=== PATIENT | male | born 1945 | race Caucasian/White ===

== ENCOUNTER → 2016-07-25 | Outpatient (CLI) | payer BC, OTHER ==
[2016-07-25 12:25] LABS: Basophils # (auto) 0 uL; Basophils % (auto) 0.4 % (0.0-2.0); Eosinophils # (auto) 0.2 uL; Eosinophils % (auto) 3.7 % (0.0-7.0); Hematocrit 44.8 % (41.0-53.0); Lymphocytes # (auto) 1.6 uL; Mean Corpuscular Hemoglobin 29.5 pg (28.0-32.0); Mean Corpuscular Hgb Conc. 31.3 g/dL (32.0-36.0); Mean Corpuscular Volume 94.3 fL (80.0-100.0); Mean Platelet Volume 8.7 fL (7.4-10.4); Monocytes # (auto) 0.5 uL; Monocytes % (auto) 7.9 % (0.0-12.0); Neutrophils # (auto) 3.4 uL; Platelet Count (auto) 274 10^3/uL (140-450); Red Cell Distribution Width 13.7 % (11.6-16.0); White Blood Cell 5.7 10^3/uL (4.4-10.8)
[2016-07-25 12:31] LABS: Urine Bilirubin Negative (Negative); Urine Blood Negative /uL (Negative); Urine Color Yellow (Yellow); Urine Glucose Normal (Normal); Urine Ketone Negative (Negative); Urine Nitrite Negative (Negative); Urine Urobilinogen Normal (Negative)
[2016-07-25 13:40] LABS: Albumin 3.9 g/dL (3.4-5.0); BUN/Creatinine Ratio 17.8; Bilirubin, Direct 0.1 mg/dL (0-0.2); Bilirubin, Total 0.3 mg/dL (0.2-1.0); Potassium 4.1 mmol/L (3.5-5.1); Total Protein 7.4 g/dL (6.4-8.2)
== END | disposition home or self-care (01) ==
LOC: LAB 08:16
PROVIDERS: ATTEND Internal Medicine Cardiovascular Disease
DX: I10 Essential (primary) hypertension (principal); E78.00 Pure hypercholesterolemia, unspecified; K74.1 Hepatic sclerosis; E11.9 Type 2 diabetes mellitus without complications; E03.9 Hypothyroidism, unspecified; D64.9 Anemia, unspecified; E55.9 Vitamin D deficiency, unspecified; N39.0 Urinary tract infection, site not specified
CPT/HCPCS: 36415; 80048; 80061; 80076; 81003; 82306; 83036; 84443; 85025

== ENCOUNTER → 2017-05-03 | Outpatient (CLI) | payer MEDICARE, OTHER | END | disposition home or self-care (01) | LOC: Rad HDHVI 09:25 | PROVIDERS: ATTEND Internal Medicine Cardiovascular Disease | DX: I05.2 Rheumatic mitral stenosis with insufficiency (principal); I35.0 Nonrheumatic aortic (valve) stenosis; R06.02 Shortness of breath | CPT/HCPCS: 93306 ==

== ENCOUNTER → 2017-05-09 | Outpatient (CLI) | payer MEDICARE, OTHER ==
[~2017-05-09] VITALS: Ht 30.5 cm; Wt 0.5 kg
[~2017-05-09] MED LIST: D5W 5% IV SCH; DIPYRIDAMOLE (5MG/ML) 10 ML VIAL IV ONE; DIPYRIDAMOLE IV SCH
== END | disposition home or self-care (01) ==
LOC: Rad HDHVI 13:30
PROVIDERS: ATTEND Internal Medicine Cardiovascular Disease
DX: I25.10 Atherosclerotic heart disease of native coronary artery without angina pectoris (principal); I25.2 Old myocardial infarction; K21.9 Gastro-esophageal reflux disease without esophagitis; M77.9 Enthesopathy, unspecified; Z95.1 Presence of aortocoronary bypass graft
CPT/HCPCS: 78452; 93005; 96374; 96375; A9500; J1245

== ENCOUNTER → 2018-02-15 | Outpatient (CLI) | payer MEDICARE, BC ==
[2018-02-15 12:16] LABS: Basophils # (auto) 0 uL; Basophils % (auto) 0.8 % (0.0-2.0); Eosinophils # (auto) 0.2 uL; Eosinophils % (auto) 3.6 % (0.0-7.0); Hematocrit 42.9 % (41.0-53.0); Hemoglobin 14.2 g/dL (13.5-17.5); Lymphocytes # (auto) 1.7 uL; Lymphocytes % (auto) 28.7 % (10.0-50.0); Mean Corpuscular Hemoglobin 31.6 pg (28.0-32.0); Mean Corpuscular Hgb Conc. 33.1 g/dL (32.0-36.0); Mean Corpuscular Volume 95.4 fL (80.0-100.0); Monocytes # (auto) 0.7 uL; Monocytes % (auto) 11.8 % (0.0-12.0); Neutrophils # (auto) 3.3 uL; Neutrophils % (auto) 55.1 % (37.0-80.0); Nucleated Red Blood Cells % 0.1 %; Platelet Count (auto) 225 10^3/uL (140-450); Red Cell Distribution Width 13.7 % (11.8-14.3)
[2018-02-15 12:22] LABS: Urine Blood TRACE /uL (Negative); Urine Specific Gravity 1.016 (1.001-1.035)
[2018-02-15 13:33] LABS: Albumin 3.6 g/dL (3.4-5.0); BUN/Creatinine Ratio 23.6; Bilirubin, Total 0.4 mg/dL (0.2-1.0); Calcium 8.6 mg/dL (8.5-10.1); Magnesium 2.3 mg/dL (1.6-2.6); Potassium 4.5 mmol/L (3.5-5.1); Total Protein 7.2 g/dL (6.4-8.2)
[2018-02-15 13:54] LABS: Free T4 (Free Thyroxine) 1.24 ng/dL (0.89-1.76)
[2018-02-15 13:56] LABS: Folate (Folic Acid) 12.47 ng/mL (5.38-24)
== END | disposition home or self-care (01) ==
LOC: LAB 08:17
PROVIDERS: ATTEND Internal Medicine
DX: Z00.01 Encounter for general adult medical examination with abnormal findings (principal); E83.40 Disorders of magnesium metabolism, unspecified; E03.9 Hypothyroidism, unspecified; E11.9 Type 2 diabetes mellitus without complications; D51.9 Vitamin B12 deficiency anemia, unspecified; N39.0 Urinary tract infection, site not specified; R74.8 Abnormal levels of other serum enzymes; K21.9 Gastro-esophageal reflux disease without esophagitis; E55.9 Vitamin D deficiency, unspecified
CPT/HCPCS: 36415; 80053; 80061; 81003; 82306; 82550; 82607; 82746; 83036; 83735; 84439; 84443; 85025

== ENCOUNTER → 2018-03-20 | Outpatient (CLI) | payer MEDICARE, BC | END | disposition home or self-care (01) | LOC: Rad HDHVI 08:04 | PROVIDERS: ATTEND Internal Medicine Cardiovascular Disease | DX: I70.8 Atherosclerosis of other arteries (principal); M54.16 Radiculopathy, lumbar region; I73.9 Peripheral vascular disease, unspecified | CPT/HCPCS: 93926 ==

== ENCOUNTER → 2018-04-24 | Outpatient (CLI) | payer MEDICARE, BC | END | disposition home or self-care (01) | LOC: Rad HDHVI 15:00 | PROVIDERS: ATTEND Internal Medicine Cardiovascular Disease | DX: M47.897 Other spondylosis, lumbosacral region (principal); I71.4 Abdominal aortic aneurysm, without rupture; M85.88 Other specified disorders of bone density and structure, other site; I70.0 Atherosclerosis of aorta; I11.0 Hypertensive heart disease with heart failure; I50.9 Heart failure, unspecified; I21.29 ST elevation (STEMI) myocardial infarction involving other sites | CPT/HCPCS: 72131; 93306 ==

== ENCOUNTER → 2018-06-04 | Outpatient (CLI) | payer MEDICARE, BC ==
[~2018-06-04] VITALS: Ht 154.9 cm; Wt 73.9 kg
[~2018-06-04] MED LIST changes: +ADENOSINE 61 MG in GIVE UN-DILUTED 0 ML IV ONE; +ADENOSINE 90 MG/30 ML INJ IV ONE; -D5W 5% IV SCH; -DIPYRIDAMOLE (5MG/ML) 10 ML VIAL IV ONE; -DIPYRIDAMOLE IV SCH
[2018-06-04 12:13] LABS: Basophils # (auto) 0 uL; Basophils % (auto) 0.8 % (0.0-2.0); Eosinophils # (auto) 0.2 uL; Eosinophils % (auto) 3.7 % (0.0-7.0); Hematocrit 42.4 % (41.0-53.0); Hemoglobin 13.8 g/dL (13.5-17.5); Lymphocytes % (auto) 16.9 % (10.0-50.0); Mean Corpuscular Hemoglobin 30.7 pg (28.0-32.0); Mean Corpuscular Hgb Conc. 32.5 g/dL (32.0-36.0); Mean Corpuscular Volume 94.5 fL (80.0-100.0); Monocytes # (auto) 0.6 uL; Monocytes % (auto) 10.1 % (0.0-12.0); Neutrophils % (auto) 68.5 % (37.0-80.0); Platelet Count (auto) 266 10^3/uL (140-450); Red Blood Cells 4.49 10^6/uL (4.5-5.90); Red Cell Distribution Width 14.7 % (11.8-14.3); White Blood Cell 5.9 10^3/uL (4.4-10.8)
[2018-06-04 12:33] LABS: Albumin 3.5 g/dL (3.4-5.0); BUN/Creatinine Ratio 16.7; Bilirubin, Total 0.3 mg/dL (0.2-1.0); Calcium 8.5 mg/dL (8.5-10.1); Total Protein 6.9 g/dL (6.4-8.2)
== END | disposition home or self-care (01) ==
LOC: Rad HDHVI 09:59 → EDSEX 09:59
PROVIDERS: ATTEND Internal Medicine Cardiovascular Disease
DX: I42.9 Cardiomyopathy, unspecified (principal); I11.0 Hypertensive heart disease with heart failure; I50.23 Acute on chronic systolic (congestive) heart failure; K92.2 Gastrointestinal hemorrhage, unspecified; D64.9 Anemia, unspecified
CPT/HCPCS: 36415; 78452; 80053; 85025; 93005; 96374; 96375; A9500; J0153

== ENCOUNTER → 2018-09-25 | Outpatient (CLI) | payer MEDICARE, BC ==
[~2018-09-25] MED LIST changes: -ADENOSINE 61 MG in GIVE UN-DILUTED 0 ML IV ONE; -ADENOSINE 90 MG/30 ML INJ IV ONE; +IOHEXOL 350 MG/ML 100ML IJ ONE
[2018-09-25 09:40] VITALS: BP 137/66
--- NOTE | 2018-09-25 09:40 | NUR ---
IV insertion IV access obtained, via clean sterile technique by inserting 20 gauge catheter at LFA after 2 attempt(s). IV secured properly. No trauma to site. Patient tolerated procedure well.
[2018-09-25 10:46] LABS: Basophils # (auto) 0 uL; Basophils % (auto) 0.7 % (0.0-2.0); Eosinophils # (auto) 0.2 uL; Eosinophils % (auto) 3.1 % (0.0-7.0); Hematocrit 45.5 % (36.0-46.0); Lymphocytes # (auto) 1.1 uL; Lymphocytes % (auto) 14.6 % (10.0-50.0); Mean Corpuscular Hemoglobin 30.9 pg (28.0-32.0); Mean Corpuscular Volume 93.6 fL (80.0-100.0); Monocytes # (auto) 0.7 uL; Neutrophils # (auto) 5.2 uL; Neutrophils % (auto) 71.6 % (37.0-80.0); Nucleated Red Blood Cells % 0.2 %; Platelet Count (auto) 225 10^3/uL (140-450); Red Blood Cells 4.86 10^6/uL (4.0-5.20); White Blood Cell 7.3 10^3/uL (4.4-10.8)
[2018-09-25 11:03] LABS: BUN/Creatinine Ratio 24.2; Calcium 9.2 mg/dL (8.5-10.1); Potassium 4.2 mmol/L (3.5-5.1)
--- NOTE | 2018-09-25 11:18 | NUR ---
IV removal IV DC'd with sterile technique, catheter fully intact. Pressure dressing applied to site. Patient tolerated procedure well.
[2018-09-25 11:20] VITALS: BP 138/75
--- NOTE | 2018-09-25 11:20 | NUR ---
[facility] Discharge Instructions See e-MAR for any mediations given with this visit. Patient education given on disease process. Patient verbalized understanding. Previous labs reviewed. Patient discharged in stable condition with after care instructions and follow up appointment. NOTE PATIENT EDUCATED TO DRINK PLENTY OF FLUIDS OVER THE NEXT 24 HOURS, PATIENT VERBALIZED UNDERSTANDING.
== END | disposition home or self-care (01) ==
LOC: Rad HDHVI 09:30
PROVIDERS: ATTEND Internal Medicine Cardiovascular Disease
DX: I71.4 Abdominal aortic aneurysm, without rupture (principal); K55.069 Acute infarction of intestine, part and extent unspecified; I70.208 Unspecified atherosclerosis of native arteries of extremities, other extremity; K57.90 Diverticulosis of intestine, part unspecified, without perforation or abscess without bleeding; D64.9 Anemia, unspecified; I10 Essential (primary) hypertension
CPT/HCPCS: 36415; 74175; 80048; 85025; G0463; Q9967

== ENCOUNTER → 2018-10-30 | Outpatient (CLI) | payer MEDICARE, BC ==
[~2018-10-30] MED LIST changes: +ASPI-231 PO; +CLOP75TA28 PO; -IOHEXOL 350 MG/ML 100ML IJ ONE; +METO25TA5 PO; +POM INH; +PRAV20TA3 PO
[2018-10-30 08:27] VITALS: BP 144/65
[2018-10-30 08:53] VITALS: BP 145/68
--- NOTE | 2018-10-30 08:53 | NUR ---
Pre-Op Discharge Summary: See e-MAR for any medications given for this visit. Pre-op orders received and carried out per MD of EKG, LABS and chest xrays. Patient given a copy of EKG with instructions to go to [facility] out patient for further follow up care.
[2018-10-30 11:29] LABS: Basophils # (auto) 0.1 uL; Basophils % (auto) 1.1 % (0.0-2.0); Eosinophils # (auto) 0.2 uL; Eosinophils % (auto) 2.4 % (0.0-7.0); Hematocrit 46.7 % (36.0-46.0); Hemoglobin 15.7 g/dL (12.2-16.2); Lymphocytes # (auto) 1.1 uL; Mean Corpuscular Hemoglobin 31.6 pg (28.0-32.0); Mean Corpuscular Hgb Conc. 33.6 g/dL (32.0-36.0); Mean Corpuscular Volume 93.9 fL (80.0-100.0); Monocytes # (auto) 0.5 uL; Monocytes % (auto) 8.5 % (0.0-12.0); Neutrophils # (auto) 4.6 uL; Nucleated Red Blood Cells % 0.1 %; Platelet Count (auto) 251 10^3/uL (140-450); Red Blood Cells 4.97 10^6/uL (4.0-5.20); Red Cell Distribution Width 13.4 % (11.8-14.3); White Blood Cell 6.4 10^3/uL (4.4-10.8)
[2018-10-30 12:11] LABS: INR 0.9 (0.9-1.15); Partial Thromboplastin Time 25.7 sec (23.78-33.04); Prothrombin Time 9.7 sec (9.27-12.13)
[2018-10-30 12:58] LABS: Albumin 3.9 g/dL (3.4-5.0); Potassium 4.2 mmol/L (3.5-5.1)
[2018-10-30 13:02] LABS: BUN/Creatinine Ratio 20.7; Bilirubin, Total 0.4 mg/dL (0.2-1.0); Total Protein 7.3 g/dL (6.4-8.2)
== END | disposition home or self-care (01) ==
LOC: Rad HDHVI 08:11
PROVIDERS: ATTEND Internal Medicine Cardiovascular Disease
DX: Z01.818 Encounter for other preprocedural examination (principal); I70.0 Atherosclerosis of aorta; I11.9 Hypertensive heart disease without heart failure
CPT/HCPCS: 71046; G0463; 36415; 80053; 85025; 85610; 85730; 86850; 86900; 86901; 86920

== ENCOUNTER 2018-10-31 07:00 | Day surgery (SDC) | payer MEDICARE, BC ==
[~2018-10-31] VITALS: Ht 154.9 cm; Wt 76.2 kg
[2018-10-31] MEDS ORDERED: fentaNYL CITRATE 100 MCG/2 ML VL ONE ×2 (07:56→09:08)
[2018-10-31] MEDS ORDERED: ANGIOMAX 250 MG VIAL IV ONE ×2 (07:56→08:49)
[2018-10-31] MEDS ORDERED: ATROPINE SULFATE 1 MG/1 ML VIAL ONE (07:56)
[2018-10-31] MEDS ORDERED: MIDAZOLAM HCL 1MG/1ML-2 ML VIAL ONE ×2 (07:56→09:08)
[2018-10-31] MEDS ORDERED: IOHEXOL 350 MG/ML 100ML IJ ONE ×2 (07:57→08:07)
[2018-10-31] MEDS ORDERED: DOPamine 1600MCG/ML D5W 0 ML IV ONE (07:57)
[2018-10-31] MEDS ORDERED: LIDOCAINE 2%HCL (LOCAL ANESTH.) INJ 20ML MDV ONE ×2 (07:57→09:14)
[2018-10-31] MEDS ORDERED: PHENYLEPHRINE IV 0 ML IV ONE (07:59)
[2018-10-31] MEDS ORDERED: PHENYLEPHRINE HCL 10 MG/ML VL ONE (07:59)
[2018-10-31] MEDS ORDERED: SODIUM CHL 0.9% 0 ML ONE (08:02)
[2018-10-31] MEDS ORDERED: diphenhdrAMINE HCL 50 MG/1 ML VL ONE ×2 (08:34→09:12)
[2018-10-31] MEDS ORDERED: ONDANSETRON HCL 4 MG/2 ML VIAL IV PRN (11:45)
[2018-10-31] MEDS ORDERED: ACETAMINOPHEN 500 MG TAB PO PRN (11:45)
== END 2018-10-31 16:35 | disposition home or self-care (01) ==
LOC: CATH 07:00
PROVIDERS: ATTEND Internal Medicine Cardiovascular Disease
DX: Q28.8 Other specified congenital malformations of circulatory system (principal); I71.4 Abdominal aortic aneurysm, without rupture; J45.909 Unspecified asthma, uncomplicated; I25.2 Old myocardial infarction; Z79.899 Other long term (current) drug therapy; Z79.82 Long term (current) use of aspirin; Z98.890 Other specified postprocedural states; Z95.1 Presence of aortocoronary bypass graft; Z87.891 Personal history of nicotine dependence
CPT/HCPCS: 34701; 36415; 80053; 85025; 85610; 85730; 86850; 86900; 86901; 86920; C1760; C1769; C1894; J0583; J1200; J1644; J2250; J3010; J7030; Q9967; 99152; J0461

== ENCOUNTER → 2018-11-04 | Outpatient (CLI) | payer MEDICARE, BC ==
[~2018-11-04] MED LIST changes: +IOHEXOL 350 MG/ML 100ML IJ ONE
[2018-11-04 09:25] VITALS: BP 104/52
--- NOTE | 2018-11-04 09:25 | NUR ---
CHF PT ARRIVED TO [facility]F CLINIC IN [address] ABD/PELVIS. V/S OBTAINED IV insertion IV access obtained, via clean sterile technique by inserting 22 gauge catheter at after attempt(s). IV secured properly. No trauma to site. Patient tolerated procedure well.
[2018-11-04 10:33] LABS: BUN/Creatinine Ratio 19.5
--- NOTE | 2018-11-04 11:20 | NUR ---
IV PTS IV GAVE OUT AT THE END OF CT. TEST WAS COMPLETED. SMALL IV INFILTRATION NOTED, APPLIED ICE, SWELLING WENT DOWN A LITTLE AFTER 10 MINUTES, SENT PT HOME WITH ICE PACK AN ADVISED TO PUT ICE ON IT AT HOME. PT VERBALIZED UNDERSTANDING
[2018-11-04 11:36] VITALS: BP 116/53
--- NOTE | 2018-11-04 11:36 | NUR ---
Discharge Instructions See e-MAR for any mediations given with this visit. Patient education given on disease process. Patient verbalized understanding. Previous labs reviewed. Patient discharged in stable condition with after care instructions and follow up appointment. ENCOURAGED PT TO INCREASE FLUID INTAKE TODAY
== END | disposition home or self-care (01) ==
LOC: Rad HDHVI 09:07
PROVIDERS: ATTEND Internal Medicine Cardiovascular Disease
DX: K57.30 Diverticulosis of large intestine without perforation or abscess without bleeding (principal); I71.9 Aortic aneurysm of unspecified site, without rupture; I70.0 Atherosclerosis of aorta; I77.1 Stricture of artery
CPT/HCPCS: 36415; 74175; 80048; G0463; Q9967

== ENCOUNTER → 2019-03-10 | Outpatient (CLI) | payer MEDICARE, BC ==
[~2019-03-10] MED LIST changes: -IOHEXOL 350 MG/ML 100ML IJ ONE
== END | disposition home or self-care (01) ==
LOC: Rad HDHVI 14:02
PROVIDERS: ATTEND Internal Medicine Cardiovascular Disease
DX: I08.8 Other rheumatic multiple valve diseases (principal); I25.10 Atherosclerotic heart disease of native coronary artery without angina pectoris; I63.9 Cerebral infarction, unspecified
CPT/HCPCS: 93306

== ENCOUNTER → 2019-04-29 | Outpatient (CLI) | payer MEDICARE, BC ==
[~2019-04-29] VITALS: Ht 154.9 cm; Wt 73.9 kg
== END | disposition home or self-care (01) ==
LOC: Rad HDHVI 14:03
PROVIDERS: ATTEND Internal Medicine Cardiovascular Disease
DX: I11.0 Hypertensive heart disease with heart failure (principal); I50.23 Acute on chronic systolic (congestive) heart failure; I25.5 Ischemic cardiomyopathy; I25.10 Atherosclerotic heart disease of native coronary artery without angina pectoris; R09.89 Other specified symptoms and signs involving the circulatory and respiratory systems; Z95.1 Presence of aortocoronary bypass graft; Z23 Encounter for immunization; Z87.891 Personal history of nicotine dependence; Z91.09 Other allergy status, other than to drugs and biological substances
CPT/HCPCS: 78472; 96374; 96375; A9505

== ENCOUNTER → 2019-06-23 | Outpatient (CLI) | payer MEDICARE, BC | END | disposition home or self-care (01) | LOC: Rad HDHVI 11:42 | PROVIDERS: ATTEND Internal Medicine | DX: I70.0 Atherosclerosis of aorta (principal); R06.03 Acute respiratory distress | CPT/HCPCS: 71046 ==

== ENCOUNTER → 2020-02-06 | Outpatient (CLI) | payer MEDICARE, BC | END | disposition home or self-care (01) | LOC: Rad HDHVI 09:05 | PROVIDERS: ATTEND Internal Medicine Cardiovascular Disease | DX: I25.10 Atherosclerotic heart disease of native coronary artery without angina pectoris (principal); R06.02 Shortness of breath; R07.89 Other chest pain | CPT/HCPCS: 93306 ==

== ENCOUNTER → 2020-02-24 | Outpatient (CLI) | payer MEDICARE, BC ==
[~2020-02-24] VITALS: Ht 154.9 cm; Wt 76.2 kg
[~2020-02-24] MED LIST changes: +ADENOSINE 64 MG in GIVE UN-DILUTED 0 ML IV ONE; +ADENOSINE 90 MG/30 ML INJ IV ONE
== END | disposition home or self-care (01) ==
LOC: Rad HDHVI 09:43
PROVIDERS: ATTEND Internal Medicine Cardiovascular Disease
DX: I25.10 Atherosclerotic heart disease of native coronary artery without angina pectoris (principal); I10 Essential (primary) hypertension; I25.2 Old myocardial infarction; I50.43 Acute on chronic combined systolic (congestive) and diastolic (congestive) heart failure; R07.9 Chest pain, unspecified; E78.00 Pure hypercholesterolemia, unspecified; Z82.49 Family history of ischemic heart disease and other diseases of the circulatory system; Z95.1 Presence of aortocoronary bypass graft
CPT/HCPCS: 78452; 93005; 96374; 96375; A9500; J0153

== ENCOUNTER → 2020-03-26 | Outpatient (CLI) | payer MEDICARE, BC ==
[~2020-03-26] MED LIST changes: -ADENOSINE 64 MG in GIVE UN-DILUTED 0 ML IV ONE; -ADENOSINE 90 MG/30 ML INJ IV ONE; +ALBUAER3 IN; +ASCO500C49 PO; +BUDE1AER4 IN; +CARB45TA PO; +MONT10TA23 PO; +NITR0.4S29 SL; +SPIR25TA88 PO
[2020-03-26 08:30] VITALS: BP 131/55
[2020-03-26 08:55] VITALS: BP 135/57
[2020-03-26 12:31] LABS: INR 0.96 (0.9-1.15); Partial Thromboplastin Time 27.2 sec (23.0-31.2)
[2020-03-26 12:38] LABS: Potassium 4.3 mmol/L (3.5-5.1)
[2020-03-26 12:39] LABS: Basophils # (auto) 0.1 10 ^3/uL (0-0.2); Basophils % (auto) 0.9 % (0.0-2.0); Eosinophils # (auto) 0.2 10 ^3/uL (0-0.8); Eosinophils % (auto) 2.8 % (0.0-7.0); Hematocrit 45.5 % (36.0-46.0); Hemoglobin 15.4 g/dL (12.2-16.2); Lymphocytes # (auto) 1.6 10 ^3/uL (0.4-5.4); Lymphocytes % (auto) 21.1 % (10.0-50.0); Mean Corpuscular Hemoglobin 32.3 pg (28.0-32.0); Mean Corpuscular Hgb Conc. 33.9 g/dL (32.0-36.0); Mean Corpuscular Volume 95.5 fL (80.0-100.0); Monocytes # (auto) 0.9 10 ^3/uL (0-1.3); Monocytes % (auto) 12.4 % (0.0-12.0); Neutrophils # (auto) 4.7 10 ^3/uL (1.6-8.6); Neutrophils % (auto) 62.8 % (37.0-80.0); Nucleated Red Blood Cells % 0.1 %; Platelet Count (auto) 249 10^3/uL (140-450); Red Blood Cells 4.76 10^6/uL (4.0-5.20); Red Cell Distribution Width 13.1 % (11.8-14.3); White Blood Cell 7.6 10^3/uL (4.4-10.8)
[2020-03-26 12:42] LABS: BUN/Creatinine Ratio 17.4; Calcium 8.9 mg/dL (8.5-10.1)
== END | disposition home or self-care (01) ==
LOC: Rad HDHVI 08:15
PROVIDERS: ATTEND Internal Medicine Cardiovascular Disease
DX: Z01.812 Encounter for preprocedural laboratory examination (principal); I42.9 Cardiomyopathy, unspecified; I50.9 Heart failure, unspecified; I51.7 Cardiomegaly; I70.0 Atherosclerosis of aorta; M47.814 Spondylosis without myelopathy or radiculopathy, thoracic region; M25.78 Osteophyte, vertebrae
CPT/HCPCS: 36415; 71046; 80048; 85025; 85610; 85730; 93005; G0463

== ENCOUNTER 2020-04-01 07:01 | Inpatient (IN) | payer MEDICARE, OTHER ==
[~2020-04-01] VITALS: Ht 154.9 cm; Wt 86.3 kg
[~2020-04-01 07:01] MED LIST changes: -POM INH
[2020-04-01] MEDS ORDERED: IOHEXOL 350 MG/ML 100ML IJ ONE (07:53)
[2020-04-01] MEDS ORDERED: LIDOCAINE 2%HCL (LOCAL ANESTH.) INJ 20ML MDV ONE ×3 (07:53→09:22)
[2020-04-01] MEDS ORDERED: MIDAZOLAM HCL 1MG/1ML-2 ML VIAL ONE ×2 (09:00→09:48)
[2020-04-01] MEDS ORDERED: fentaNYL CITRATE 100 MCG/2 ML VL ONE ×2 (09:04→09:47)
[2020-04-01] MEDS ORDERED: SODIUM CHL 0.9% 50 ML ONE (09:05)
[2020-04-01] MEDS ORDERED: ANGIOMAX 250 MG VIAL IV ONE (09:05)
[2020-04-01] MEDS ORDERED: HYDROmorphone HCL 2 MG/ML VL ONE (10:29)
[2020-04-01] MEDS: RIVAROXABAN 10 MG TAB PO SCH (10:58)
--- NOTE | 2020-04-01 10:58 | NUR ---
MED HELD- PER MD HOLD BLOOD THINNERS TILL NEW ORDERS GIVEN
[2020-04-01] MEDS ORDERED: SODIUM CHLORIDE 0.9% 1,000 ML IV ONE (11:00)
[2020-04-01] MEDS ORDERED: ONDANSETRON HCL 4 MG/2 ML VIAL IV PRN (11:15)
[2020-04-01] MEDS ORDERED: MORPHINE SULF INJ 2 MG/ML SYRINGE 1ML IV PRN (11:15)
[2020-04-01] MEDS ORDERED: ACETAMINOPHEN 500 MG TAB PO PRN (11:15)
[2020-04-01] MEDS ORDERED: NITROGLYCERIN 0.4 MG SL TAB SL PRN ×2 (11:15)
[2020-04-01 11:31] LABS: Basophils # (auto) 0.1 10 ^3/uL (0-0.2); Basophils % (auto) 0.5 % (0.0-2.0); Eosinophils # (auto) 0.2 10 ^3/uL (0-0.8); Eosinophils % (auto) 1.8 % (0.0-7.0); Hematocrit 39.8 % (36.0-46.0); Lymphocytes # (auto) 1.5 10 ^3/uL (0.4-5.4); Lymphocytes % (auto) 14.6 % (10.0-50.0); Mean Corpuscular Hemoglobin 31.5 pg (28.0-32.0); Mean Corpuscular Hgb Conc. 32.5 g/dL (32.0-36.0); Mean Corpuscular Volume 96.9 fL (80.0-100.0); Monocytes # (auto) 0.8 10 ^3/uL (0-1.3); Monocytes % (auto) 7.9 % (0.0-12.0); Neutrophils # (auto) 7.8 10 ^3/uL (1.6-8.6); Neutrophils % (auto) 75.2 % (37.0-80.0); Platelet Count (auto) 269 10^3/uL (140-450); Red Blood Cells 4.11 10^6/uL (4.0-5.20); Red Cell Distribution Width 13.1 % (11.8-14.3); White Blood Cell 10.3 10^3/uL (4.4-10.8)
[2020-04-01] MEDS ORDERED: SODIUM CHLORIDE 0.9% 1,000 ML IV SCH (11:45)
[2020-04-01] MEDS ORDERED: ALBUTEROL SULF HFA 90MCG INH 200DOSE IN PRN (12:00)
[2020-04-01 12:37] VITALS: BP 112/75
[2020-04-01 13:06] VITALS: BP 131/63
[2020-04-01] MEDS ORDERED: FUROSEMIDE 20 MG/2 ML VIAL IV ONE ×2 (13:10→13:15)
[2020-04-01] MEDS ORDERED: FUROSEMIDE 20 MG/2 ML VIAL ONE (13:13)
[2020-04-01 13:21] VITALS: BP 128/75
[2020-04-01 13:50] VITALS: BP 130/77
[2020-04-01] MEDS: MONTELUKAST SODIUM 10 MG TAB PO SCH (18:37)
[2020-04-01] MEDS: PRAVASTATIN SODIUM 20 MG TAB PO SCH (18:37)
[2020-04-01] MEDS: HYDROcodone-ACET 5/325MG TAB PO PRN (18:38)
[2020-04-01] MEDS: BUDESONIDE (INHALATION) 0.5 MG/2 ML NEB NEB SCH (18:57)
[2020-04-01] MEDS: ALBUTEROL SULF 2.5 MG/0.5ML(0.5%) NEB SOLN NEB SCH (18:57)
[2020-04-01 19:47] LABS: Basophils # (auto) 0.1 10 ^3/uL (0-0.2); Basophils % (auto) 0.5 % (0.0-2.0); Eosinophils # (auto) 0 10 ^3/uL (0-0.8); Hematocrit 40.2 % (36.0-46.0); Hemoglobin 12.9 g/dL (12.2-16.2); Lymphocytes # (auto) 0.6 10 ^3/uL (0.4-5.4); Lymphocytes % (auto) 3.1 % (10.0-50.0); Mean Corpuscular Hemoglobin 31.5 pg (28.0-32.0); Mean Corpuscular Hgb Conc. 32.2 g/dL (32.0-36.0); Mean Corpuscular Volume 97.9 fL (80.0-100.0); Monocytes # (auto) 1.4 10 ^3/uL (0-1.3); Monocytes % (auto) 7.5 % (0.0-12.0); Neutrophils # (auto) 16.2 10 ^3/uL (1.6-8.6); Neutrophils % (auto) 88.9 % (37.0-80.0); Nucleated Red Blood Cells % 0.1 %; Platelet Count (auto) 233 10^3/uL (140-450); Red Cell Distribution Width 13.4 % (11.8-14.3); White Blood Cell 18.3 10^3/uL (4.4-10.8)
--- NOTE | 2020-04-01 20:00 | NUR ---
No bleeding noted in both groin.
--- NOTE | 2020-04-01 20:00 | NUR ---
Opening Shift Note Assumed care of patient, awake and alert. No S/S of distress/SOB or pain. Instructed on POC and to call for assist PRN, will continue to monitor for changes Q1hr and PRN.Advised not to get out of bed till trevor. 1 p.m.
[2020-04-01] MEDS: METOPROLOL TARTRATE 25 MG TAB PO SCH (21:53)
[2020-04-01] MEDS: ASCORBIC ACID 500 MG TAB PO SCH (21:54)
[2020-04-01 22:26] VITALS: BP 118/65
[2020-04-02] MEDS: HYDROcodone-ACET 5/325MG TAB PO PRN ×4 (00:19→19:31)
[2020-04-02] MEDS: ALBUTEROL SULF 2.5 MG/0.5ML(0.5%) NEB SOLN NEB SCH ×4 (00:21→19:20)
[2020-04-02 01:28] VITALS: BP 118/65
[2020-04-02 05:16] VITALS: BP 128/56
[2020-04-02] MEDS: SPIRONOLACTONE 25 MG TAB PO SCH (05:49)
[2020-04-02] MEDS: FERROUS SULFATE 325 MG TAB PO SCH (05:50)
[2020-04-02] MEDS: BUDESONIDE (INHALATION) 0.5 MG/2 ML NEB NEB SCH ×2 (06:23→19:20)
--- NOTE | 2020-04-02 07:00 | NUR ---
OPENING SHIFT NOTE RECEIVED REPORT ON THE PATIENT. AWAKE LYING IN BED HAVING BREAKFAST. PATIENT SHOWS NO SIGNS OF DISTRESS AT THIS TIME. DISCUSSED THE PLAN OF CARE WITH THE PATIENT. BED IN LOWEST POSITION, SIDE RAILS UP X2, AND THE CALL LIGHT IS WITHIN REACH.
--- NOTE | 2020-04-02 07:24 | NUR ---
Care report given to Nestor Victoria, patient is resting no distress.
[2020-04-02 08:55] VITALS: BP 130/63
[2020-04-02] MEDS: ASCORBIC ACID 500 MG TAB PO SCH ×2 (10:04→21:56)
[2020-04-02] MEDS: ASPirin-EC 81 mg tab PO SCH (10:05)
[2020-04-02] MEDS: METOPROLOL TARTRATE 25 MG TAB PO SCH ×2 (10:05→21:56)
[2020-04-02] MEDS: CLOPIDOGREL BISULFATE 75 MG TAB PO SCH (10:06)
[2020-04-02 13:00] VITALS: BP 118/51
[2020-04-02] MEDS ORDERED: FUROSEMIDE 40 MG/4 ML VIAL IV ONE (15:00)
[2020-04-02 17:00] VITALS: BP 109/46
[2020-04-02] MEDS: PRAVASTATIN SODIUM 20 MG TAB PO SCH (18:33)
[2020-04-02] MEDS: MONTELUKAST SODIUM 10 MG TAB PO SCH (18:33)
--- NOTE | 2020-04-02 19:31 | NUR ---
Opening Shift Note Assumed care of patient, awake and alert. No S/S of distress/SOB, c/o body ache pain 10/02. Instructed on POC and to call for assist PRN, will continue to monitor for changes Q1hr and PRN.Medicated with one tab. Valders 5/325mg. p.o. as needed.
[2020-04-02 22:10] VITALS: BP 102/50
[2020-04-03] MEDS: ALBUTEROL SULF 2.5 MG/0.5ML(0.5%) NEB SOLN NEB SCH ×4 (00:20→18:50)
[2020-04-03 05:41] VITALS: BP 109/54
[2020-04-03] MEDS: SPIRONOLACTONE 25 MG TAB PO SCH (06:15)
[2020-04-03] MEDS: FERROUS SULFATE 325 MG TAB PO SCH (06:15)
[2020-04-03] MEDS: BUDESONIDE (INHALATION) 0.5 MG/2 ML NEB NEB SCH ×2 (06:35→18:50)
--- NOTE | 2020-04-03 07:21 | NUR ---
Report given to Nestor Jay, patient is resting ,no distress.
--- NOTE | 2020-04-03 07:30 | NUR ---
Opening Note Assumed care of patient, she is A & O x4, no s/s of distress at this time. Patient is comfortable, with soreness in bilateral groin. Will continue to monitor Q1h and PRN.
--- NOTE | 2020-04-03 07:30 | NUR ---
Opening note, Report
[2020-04-03 08:40] VITALS: BP 117/50
--- NOTE | 2020-04-03 10:00 | NUR ---
PT REPORTS THAT SHE JUST WALKED TO RESTROOM WITH NURSING. ATTEMPT P.T. LATER
[2020-04-03] MEDS: ASPirin-EC 81 mg tab PO SCH (10:07)
[2020-04-03] MEDS: ASCORBIC ACID 500 MG TAB PO SCH ×2 (10:07→21:45)
[2020-04-03] MEDS: CLOPIDOGREL BISULFATE 75 MG TAB PO SCH (10:07)
[2020-04-03] MEDS: METOPROLOL TARTRATE 25 MG TAB PO SCH ×2 (10:08→21:45)
--- NOTE | 2020-04-03 10:30 | NUR ---
Contacted Dr. Cloud, Orders received, read back, and verified to continue xarelto. Will medicate per orders.
[2020-04-03] MEDS: RIVAROXABAN 10 MG TAB PO SCH (12:00)
[2020-04-03 12:33] VITALS: BP 112/63
--- NOTE | 2020-04-03 14:00 | NUR ---
Paged PT to walk with patient. Patient request. She would like to walk with a walker.
[2020-04-03 16:33] VITALS: BP 119/51
[2020-04-03] MEDS: PRAVASTATIN SODIUM 20 MG TAB PO SCH (18:25)
[2020-04-03] MEDS: MONTELUKAST SODIUM 10 MG TAB PO SCH (18:26)
--- NOTE | 2020-04-03 18:30 | NUR ---
Removed IV in the left hand. Using clean technique, removed IV, it was causing patient pain, held pressure, no bleeding following procedure. Patient still has one iv in the left wrist.
[2020-04-03] MEDS: HYDROcodone-ACET 5/325MG TAB PO PRN (18:34)
[2020-04-03 23:10] VITALS: BP 109/54
[2020-04-04] MEDS: ALBUTEROL SULF 2.5 MG/0.5ML(0.5%) NEB SOLN NEB SCH ×3 (00:10→11:42)
[2020-04-04 05:15] VITALS: BP 115/60
[2020-04-04] MEDS: FERROUS SULFATE 325 MG TAB PO SCH (06:43)
[2020-04-04] MEDS: SPIRONOLACTONE 25 MG TAB PO SCH (06:43)
--- NOTE | 2020-04-04 07:59 | NUR ---
Report given to Nestor Gamez, patient is resting no distress.
[2020-04-04 08:26] VITALS: BP 113/67
--- NOTE | 2020-04-04 09:30 | NUR ---
Calderon catheter removed upon patient request. Patient will be walking with PT, she wants catheter removed. Removed catheter using clean technique, tip intact, no signs of distress. Will monitor patients next void.
[2020-04-04] MEDS: ASCORBIC ACID 500 MG TAB PO SCH (09:31)
[2020-04-04] MEDS: HYDROcodone-ACET 5/325MG TAB PO PRN (09:31)
[2020-04-04] MEDS: RIVAROXABAN 10 MG TAB PO SCH (09:31)
[2020-04-04] MEDS: METOPROLOL TARTRATE 25 MG TAB PO SCH (09:32)
[2020-04-04] MEDS: CLOPIDOGREL BISULFATE 75 MG TAB PO SCH (09:32)
[2020-04-04] MEDS: ASPirin-EC 81 mg tab PO SCH (09:32)
[2020-04-04] MEDS: BUDESONIDE (INHALATION) 0.5 MG/2 ML NEB NEB SCH (11:42)
[2020-04-04 12:58] VITALS: BP 109/56
--- NOTE | 2020-04-04 14:30 | NUR ---
Discharge Order received by telephone from Dr. Cloud. Order received, read back and verified. Tramadol prescription called to patient pharmacy. Will discharge as ordered.
[2020-04-04 16:25] VITALS: BP 113/67
[2020-04-04 16:57] VITALS: BP 109/66
--- NOTE | 2020-04-04 17:29 | NUR ---
Discharge instructions given as ordered. Encourage to follow up with PMD as instructed. All questions and concerns addressed. Patient verbalized understanding. Medication reconciliation form completed and copy given to patient. IV removed with catheter intact, pressure dressing applied, galeano catheter removed. Telemetry unit returned to ICU. Patient taken to vehicle via wheelchair with all personal belongings, accompanied by staff and family member. No distress noted at time of departure.
== END 2020-04-04 17:29 | disposition home or self-care (01) | DRG 252 ==
LOC: CATH 07:01 → TELE-WESTW 14:48
PROVIDERS: ADMIT Internal Medicine Cardiovascular Disease; ATTEND Internal Medicine Cardiovascular Disease
PROC: 4A023N7 Measurement of Cardiac Sampling and Pressure, Left Heart, Percutaneous Approach (ICD-10-PCS; principal; 2020-04-01)
PROC: 047D3DZ Dilation of Left Common Iliac Artery with Intraluminal Device, Percutaneous Approach (ICD-10-PCS; 2020-04-01)
PROC: 047C3DZ Dilation of Right Common Iliac Artery with Intraluminal Device, Percutaneous Approach (ICD-10-PCS; 2020-04-01)
PROC: B211YZZ Fluoroscopy of Multiple Coronary Arteries using Other Contrast (ICD-10-PCS; 2020-04-01)
PROC: B213YZZ Fluoroscopy of Multiple Coronary Artery Bypass Grafts using Other Contrast (ICD-10-PCS; 2020-04-01)
PROC: B218YZZ Fluoroscopy of Left Internal Mammary Bypass Graft using Other Contrast (ICD-10-PCS; 2020-04-01)
PROC: B215YZZ Fluoroscopy of Left Heart using Other Contrast (ICD-10-PCS; 2020-04-01)
PROC: B410YZZ Fluoroscopy of Abdominal Aorta using Other Contrast (ICD-10-PCS; 2020-04-01)
PROC: B312YZZ Fluoroscopy of Left Subclavian Artery using Other Contrast (ICD-10-PCS; 2020-04-01)
PROC: B41CYZZ Fluoroscopy of Pelvic Arteries using Other Contrast (ICD-10-PCS; 2020-04-01)
PROC: B41GYZZ Fluoroscopy of Left Lower Extremity Arteries using Other Contrast (ICD-10-PCS; 2020-04-01)
PROC: B41FYZZ Fluoroscopy of Right Lower Extremity Arteries using Other Contrast (ICD-10-PCS; 2020-04-01)
DX: I73.9 Peripheral vascular disease, unspecified (principal); I50.21 Acute systolic (congestive) heart failure; I25.5 Ischemic cardiomyopathy; I11.0 Hypertensive heart disease with heart failure; Z20.828 Contact with and (suspected) exposure to other viral communicable diseases; E78.5 Hyperlipidemia, unspecified; J44.9 Chronic obstructive pulmonary disease, unspecified; E66.9 Obesity, unspecified; D72.829 Elevated white blood cell count, unspecified; I25.10 Atherosclerotic heart disease of native coronary artery without angina pectoris; X58.XXXA Exposure to other specified factors, initial encounter; S30.1XXA Contusion of abdominal wall, initial encounter; Z82.49 Family history of ischemic heart disease and other diseases of the circulatory system; Z68.35 Body mass index [BMI] 35.0-35.9, adult; Z95.1 Presence of aortocoronary bypass graft; Z95.5 Presence of coronary angioplasty implant and graft; Y93.89 Activity, other specified; Y92.89 Other specified places as the place of occurrence of the external cause; Y99.8 Other external cause status; Z88.8 Allergy status to other drugs, medicaments and biological substances
CPT/HCPCS: 36225; 36415; 37221; 37222; 75625; 75716; 75736; 76700; 85025; 86850; 86900; 86901; 86920; 93459; 94640; 99152; 99153; G0378; J2250; J2405

== ENCOUNTER → 2020-05-07 | Outpatient (CLI) | payer MEDICARE, BC ==
[~2020-05-07] MED LIST changes: +CHOL20007 PO
[2020-05-07 13:24] VITALS: BP 131/56
--- NOTE | 2020-05-07 13:24 | NUR ---
Patient into clinic for scheduled preop appt, AAOx4, ambulatory, breathing even and unlabored. Patient went to hospital for pre registration prior to coming to preop appt.
[2020-05-07 13:50] VITALS: BP 121/64
--- NOTE | 2020-05-07 13:50 | NUR ---
Pre-Op Discharge Summary: See e-MAR for any medications given for this visit. Pre-op orders received and carried out per MD of EKG, LABS and chest xrays. Patient given a copy of EKG with instructions to go to [facility] out patient for further follow up care.
[2020-05-07 16:09] LABS: BUN/Creatinine Ratio 21.3; Calcium 9.6 mg/dL (8.5-10.1)
[2020-05-07 16:27] LABS: Basophils # (auto) 0.1 10 ^3/uL (0-0.2); Basophils % (auto) 0.9 % (0.0-2.0); Eosinophils # (auto) 0.2 10 ^3/uL (0-0.8); Eosinophils % (auto) 2.8 % (0.0-7.0); Hematocrit 44.5 % (36.0-46.0); Hemoglobin 14.6 g/dL (12.2-16.2); Lymphocytes # (auto) 1.5 10 ^3/uL (0.4-5.4); Lymphocytes % (auto) 17.7 % (10.0-50.0); Mean Corpuscular Hemoglobin 31.8 pg (28.0-32.0); Mean Corpuscular Hgb Conc. 32.8 g/dL (32.0-36.0); Mean Corpuscular Volume 96.9 fL (80.0-100.0); Monocytes # (auto) 0.9 10 ^3/uL (0-1.3); Monocytes % (auto) 10.7 % (0.0-12.0); Neutrophils # (auto) 5.7 10 ^3/uL (1.6-8.6); Neutrophils % (auto) 67.9 % (37.0-80.0); Nucleated Red Blood Cells % 0.1 %; Platelet Count (auto) 263 10^3/uL (140-450); Red Blood Cells 4.59 10^6/uL (4.0-5.20); Red Cell Distribution Width 14.6 % (11.8-14.3); White Blood Cell 8.4 10^3/uL (4.4-10.8)
[2020-05-07 16:43] LABS: Potassium 4.6 mmol/L (3.5-5.1)
[2020-05-07 16:46] LABS: INR 0.97 (0.9-1.15); Partial Thromboplastin Time 25.7 sec (23.0-31.2)
== END | disposition home or self-care (01) ==
LOC: Rad HDHVI 13:11
PROVIDERS: ATTEND Internal Medicine Cardiovascular Disease
DX: Z01.812 Encounter for preprocedural laboratory examination (principal); I70.0 Atherosclerosis of aorta; I11.0 Hypertensive heart disease with heart failure; I50.43 Acute on chronic combined systolic (congestive) and diastolic (congestive) heart failure
CPT/HCPCS: 36415; 71046; 80048; 85025; 85610; 85730; 93005; G0463

== ENCOUNTER 2020-05-13 07:08 | Inpatient (IN) | payer MEDICARE, OTHER ==
[~2020-05-13] VITALS: Ht 154.9 cm; Wt 78.0 kg
[2020-05-13] MEDS ORDERED: IOHEXOL 350 MG/ML 100ML IJ ONE (07:37)
[2020-05-13] MEDS ORDERED: LIDOCAINE 2%HCL (LOCAL ANESTH.) INJ 20ML MDV ONE ×2 (07:37→08:58)
[2020-05-13] MEDS ORDERED: fentaNYL CITRATE 100 MCG/2 ML VL ONE (07:38)
[2020-05-13] MEDS ORDERED: VANCOMYCIN HCL 1000 MG VL ONE (07:38)
[2020-05-13] MEDS ORDERED: MIDAZOLAM HCL 1MG/1ML-2 ML VIAL ONE (07:39)
[2020-05-13] MEDS ORDERED: VANCOMYCIN 1GM/250ML 250 ML IV ONE (07:39)
[2020-05-13] MEDS ORDERED: HYDROmorphone HCL 2 MG/ML VL ONE (08:56)
[2020-05-13] MEDS ORDERED: FUROSEMIDE 20 MG/2 ML VIAL ONE (09:34)
--- NOTE | 2020-05-13 10:02 | NUR ---
Patient brought to recovery via blnaca, report received from ANIRUDH Shelby. Patient is AO x 4, denies pain at this time. NAD noted. Left upper chest site is benign, dressing in place CDI. Ice pack applied to site. Arm immobilizer in place to left arm. Patient educated on post-procedure care instructions, verbalized understanding.
[2020-05-13] MEDS ORDERED: ACETAMINOPHEN 325 MG TAB PO PRN (10:15)
[2020-05-13] MEDS ORDERED: MORPHINE SULF INJ 2 MG/ML SYRINGE 1ML IV PRN (10:15)
[2020-05-13] MEDS ORDERED: NITROGLYCERIN 0.4 MG SL TAB SL PRN (10:15)
--- NOTE | 2020-05-13 10:17 | NUR ---
EKG obtained and placed in patient's chart. MD Cloud reviewed and signed.
--- NOTE | 2020-05-13 10:20 | NUR ---
transport technician at bedside for CXR.
--- NOTE | 2020-05-13 10:40 | NUR ---
Patient is awake in bed. NAD noted. Denies pain at this time. Left upper chest site remains unchanged.
[2020-05-13] MEDS ORDERED: ONDANSETRON HCL 4 MG/2 ML VIAL IV PRN (11:15)
[2020-05-13] MEDS: ceFAZolin 1GM/50ML 50 ML IV SCH ×2 (11:29→18:10)
--- NOTE | 2020-05-13 11:35 | NUR ---
Patient's daughter updated on patient status via telephone. All questions answered at this time.
--- NOTE | 2020-05-13 11:50 | NUR ---
Report given to ANIRUDH Grimm.
--- NOTE | 2020-05-13 12:40 | NUR ---
Patient resting in bed with eyes closed. Breaths even and unlabored. NAD noted. Left upper chest site remains benign. Dressing is CDI.
--- NOTE | 2020-05-13 13:20 | NUR ---
Patient ambulated to bathroom with steady even gait. No s/s of distress/SOB.
--- NOTE | 2020-05-13 14:20 | NUR ---
Patient awake in bed, resting comfortably. Denies pain at this time. Left upper chest site is unchanged.
--- NOTE | 2020-05-13 15:14 | NUR ---
Patient ambulated to bathroom. No s/s of distress noted. Gait is steady and even.
--- NOTE | 2020-05-13 16:10 | NUR ---
Patient taken to telemetry unit via gurney by this RN and ANIRUDH Stringer. security monitor in place and NAD noted upon departure. Primary RNVannessa present at bedside to receive patient and witness left upper chest site benign, dressing CDI. Bed set in lowest locked position with side rails up x 2, call light is within reach and bed alarm set on for safety. Care endorsed to ANIRUDH Hurd.
--- NOTE | 2020-05-13 16:20 | NUR ---
Telemetry admit from [employer] [facility] admitted to Telemetry unit after SBAR received. Patient oriented to Vannessa Boone, RN primary RN, unit, room, bed, and unit policies regarding patient care and visiting hours. Patient now on continuous telemetry monitoring, tele box #[id number] and telemetry reading on arrival to unit is SR 80. Patient placed on bedside oxygen at 1L NC, weighed by bedscale and encouraged to call if they need something. All questions and concerns addressed, patient verbalized understanding. Patient is aware of restrictions to left arm. S/p BIV AICD placement with Dr. Cloud. Left arm is immobilized with sling, ice pack to left upper chest. Bed is low, locked with 2x side rails up. Call light is within reach. This nurse to round Q1hr and PRN.
--- NOTE | 2020-05-13 16:34 | NUR ---
Spoke to patient's , Jorge, via telephone. Phone number . Updated Jorge on patient status. All questions answered at this time
[2020-05-13 16:49] VITALS: BP 123/91
[2020-05-13] MEDS ORDERED: MONTELUKAST SODIUM 10 MG TAB PO SCH (18:00)
[2020-05-13] MEDS ORDERED: PRAVASTATIN SODIUM 20 MG TAB PO SCH (18:00)
--- NOTE | 2020-05-13 19:00 | NUR ---
Opening Shift Note Assumed care of patient from day shift RN, patient awake, alert and oriented x4. No S/S of distress/SOB or pain. Instructed on POC and to call for assist PRN, safety measures in place call light in reach, bed in lowest position, side rails up x2. will continue to monitor for changes Q1hr and PRN.
[2020-05-13] MEDS: HYDROcodone-ACET 5/325MG TAB PO PRN (19:59)
[2020-05-13 20:00] VITALS: BP 123/54
[2020-05-13] MEDS: METOPROLOL TARTRATE 25 MG TAB PO SCH (21:41)
[2020-05-13] MEDS: ASCORBIC ACID 500 MG TAB PO SCH (21:42)
[2020-05-13 22:00] VITALS: BP 123/54
--- NOTE | 2020-05-13 23:50 | NUR ---
Spoke with Dr. Cloud new orders for albuterol and pulmicort read back reviewed and verified orders.
[2020-05-14] MEDS ORDERED: ALBUTEROL SULF 2.5 MG/0.5ML(0.5%) NEB SOLN NEB PRN
[2020-05-14 02:15] VITALS: BP 123/54
[2020-05-14] MEDS: ceFAZolin 1GM/50ML 50 ML IV SCH (03:03)
[2020-05-14 05:00] VITALS: BP 110/56
[2020-05-14] MEDS: HYDROcodone-ACET 5/325MG TAB PO PRN (06:57)
[2020-05-14] MEDS ORDERED: SPIRONOLACTONE 25 MG TAB PO SCH (07:00)
--- NOTE | 2020-05-14 07:35 | NUR ---
Opening Shift Note Assumed care of patient, awake and alert and oriented x 4. Respirations are even and non labored on room air. Patient has her left arm in a sling with an ice pack over, the dressing is clean dry and intact. Bed is in the lowest and locked position with side rails up x 2 and call light within reach. No S/S of distress/SOB or pain. Instructed on POC and to call for assist PRN, will continue to monitor for changes Q1hr and PRN.
[2020-05-14 09:00] VITALS: BP 111/60
[2020-05-14] MEDS: METOPROLOL TARTRATE 25 MG TAB PO SCH (09:07)
[2020-05-14] MEDS: ASCORBIC ACID 500 MG TAB PO SCH (09:07)
[2020-05-14] MEDS ORDERED: BUDESONIDE (INHALATION) 0.5 MG/2 ML NEB NEB SCH (10:00)
[2020-05-14 13:00] VITALS: BP 101/56
[2020-05-14 15:44] VITALS: BP 101/56
[2020-05-14 16:00] VITALS: BP 101/56
--- NOTE | 2020-05-14 17:16 | NUR ---
Discharge instructions given as ordered. Encouraged patient to follow up with mortgage closer as instructed. All questions and concerns addressed. Patient verbalized understanding. IV removed with catheter intact, pressure dressing applied. Telemetry unit returned to ICU. Patient taken to vehicle via wheelchair with all personal belongings, accompanied by staff. No distress noted at time of departure.
== END 2020-05-14 17:00 | disposition home or self-care (01) | DRG 226 ==
LOC: CATH 07:08 → TELE 07:09 → TELE-CENTR 16:20
PROVIDERS: ADMIT Internal Medicine Cardiovascular Disease; ATTEND Internal Medicine Cardiovascular Disease
PROC: 0JH609Z Insertion of Cardiac Resynchronization Defibrillator Pulse Generator into Chest Subcutaneous Tissue and Fascia, Open Approach (ICD-10-PCS; principal; 2020-05-13)
PROC: 02HL3KZ Insertion of Defibrillator Lead into Left Ventricle, Percutaneous Approach (ICD-10-PCS; 2020-05-13)
PROC: 02HK3KZ Insertion of Defibrillator Lead into Right Ventricle, Percutaneous Approach (ICD-10-PCS; 2020-05-13)
PROC: 02H63KZ Insertion of Defibrillator Lead into Right Atrium, Percutaneous Approach (ICD-10-PCS; 2020-05-13)
DX: I49.5 Sick sinus syndrome (principal); I50.21 Acute systolic (congestive) heart failure; D68.59 Other primary thrombophilia; I11.0 Hypertensive heart disease with heart failure; I25.5 Ischemic cardiomyopathy; I48.91 Unspecified atrial fibrillation; Z20.828 Contact with and (suspected) exposure to other viral communicable diseases; I25.10 Atherosclerotic heart disease of native coronary artery without angina pectoris; I25.2 Old myocardial infarction; Z82.49 Family history of ischemic heart disease and other diseases of the circulatory system; Z95.1 Presence of aortocoronary bypass graft; Z87.891 Personal history of nicotine dependence
CPT/HCPCS: 33249; 71045; 93005; 94640; 99152; 99153; G0378; J0690; J2250; J2405

== ENCOUNTER → 2020-06-02 | Outpatient (CLI) | payer MEDICARE, BC | END | disposition home or self-care (01) | LOC: Rad HDHVI 10:10 | PROVIDERS: ATTEND Internal Medicine Cardiovascular Disease | DX: I50.43 Acute on chronic combined systolic (congestive) and diastolic (congestive) heart failure (principal); R06.02 Shortness of breath | CPT/HCPCS: 93306 ==